=== PATIENT | female | born 1945 | race African-American/Black ===

== ENCOUNTER 2018-06-02 13:24 | Outpatient (CLI) | payer OTHER | END 2018-06-02 13:53 | disposition home or self-care (01) | LOC: MAMO-SONO 13:24 | DX: Z12.31 Encounter for screening mammogram for malignant neoplasm of breast (principal); Z87.898 Personal history of other specified conditions; R92.0 Mammographic microcalcification found on diagnostic imaging of breast ==

== ENCOUNTER → 2018-06-04 | Outpatient (CLI) | payer OTHER | END | disposition home or self-care (01) | LOC: SONOGRAMA 11:39 | DX: E03.8 Other specified hypothyroidism (principal); E04.8 Other specified nontoxic goiter ==